=== PATIENT | male | born 1940 | race Caucasian/White ===

== ENCOUNTER 2024-06-09 07:57 | Outpatient (REF) | payer MEDICARE, SELFPAY ==
--- NOTE | ~2024-06-09 | US_ITS ---
EXAMINATION: US VENOUS ULTRASOUND WITH DOPPLER LOWER EXTREMITY, LEFT CLINICAL INFORMATION: Swelling of the extremity. Pain. COMPARISON: None available. TECHNIQUE: Ultrasound of the deep veins is performed from the hip to the calf with compression sonography and color and pulse Doppler assessment. Spectral analysis with color-flow imaging is performed. FINDINGS: The common femoral vein is compressible and exhibits a normal phasic waveform; this suggests that the iliac veins are widely patent above. Within the proximal thigh, the visualized profunda femoris vein is normal. The examined greater saphenous vein and saphenofemoral junction are normal. Superficial femoral vein is patent in the proximal, mid and distal thigh. Popliteal vein is normal to the level of the trifurcation. On compression jones scale and color Doppler images, the visualized posterior tibial and peroneal veins of the calf are patent. No evidence of Escamilla's cyst. US/US venous duplex LE LT IMPRESSION: No evidence of deep vein thrombosis in the left lower extremity.
[2024-06-09 10:00] LABS: Anion Gap 16 (12-20); Blood Urea Nitrogen 18 mg/dL (9-16); Calcium 8.7 mg/dL (8.4-10.2); Carbon Dioxide 22 mmol/L (22-29); Chloride 109 mmol/L (96-108); Estimated Glomerular Filt Rate 56; Glucose Random 119 mg/dL (60-115); Potassium 4.9 mmol/L (3.3-5.1); Sodium 142 mmol/L (135-145)
== END 2024-06-09 07:58 | disposition home or self-care (01) ==
LOC: HO.US 07:57
PROVIDERS: Visit Provider Physician Assistant Medical
DX: I48.91 Unspecified atrial fibrillation (principal); R60.0 Localized edema
CPT/HCPCS: 36415; 80048; 93971